=== PATIENT | female | born 1965 | race Caucasian/White ===

== ENCOUNTER → 2016-08-30 | Outpatient (CLI) | payer OTHER ==
--- NOTE | 2016-08-30 09:35 | US ---
Complete Abdominal Ultrasound History: Left upper quadrant pain for one year. Elevated LFTs. Comparison: None available. Findings: The liver is mildly diffusely echogenic with no focal hepatic masses. The liver is normal s ize. There is no intrahepatic biliary dilatation. The common bile duct measures 3 mm and is normal. T he gallbladder is normal. The spleen is normal, measuring 10.5 cm. The kidneys have normal echotextur e and contour without hydronephrosis or contour deforming masses. The right kidney measures 10.9 cm a nd the left kidney measures 12.2 cm. The visible aorta is normal caliber with partial obscuration by overlying bowel gas. The visible portions of the pancreas are normal with partial obscuration of the pancreatic head and tail by overlying bowel gas. The visible portions of the IVC are normal. Impression: Diffuse fatty infiltration of the liver.
== END ==
LOC: FIMAGING 08:19
PROVIDERS: ATTEND Nurse Practitioner Adult Health
DX: R10.12 Left upper quadrant pain (principal); R94.5 Abnormal results of liver function studies; K76.0 Fatty (change of) liver, not elsewhere classified

== ENCOUNTER → 2018-05-08 | Outpatient (CLI) | payer OTHER | LOC: FIMAGING 08:08 | PROVIDERS: ATTEND Obstetrics & Gynecology Gynecology | DX: Z12.31 Encounter for screening mammogram for malignant neoplasm of breast (principal) ==